=== PATIENT | female | born 1975 | race Caucasian/White ===

== ENCOUNTER 2016-05-21 13:11 | Emergency (ER) | payer SELFPAY ==
[~2016-05-21] VITALS: Ht 157.5 cm; Wt 65.8 kg
[2016-05-21 13:29] VITALS: BP 117/66
--- NOTE | 2016-05-21 15:29 | NUR ---
PATIENT IS CALLED FROM [facility] NO ANSWER PATINET IS LWBS.
== END 2016-05-21 15:30 | disposition left against medical advice (07) ==
LOC: MED 13:11
DX: R10.2 Pelvic and perineal pain (principal); Z53.21 Procedure and treatment not carried out due to patient leaving prior to being seen by health care provider